=== PATIENT | male | born 1990 | race Caucasian/White ===

== ENCOUNTER 2019-07-18 22:52 | Emergency (ER) | payer SELFPAY ==
[~2019-07-18] VITALS: Ht 182.9 cm; Wt 93.0 kg
[2019-07-18 22:59] VITALS: Ht 182.9 cm; Wt 93.0 kg
[2019-07-19 01:20] LABS: BASOPHIL % 0.6 % (0-2); PLATELET COUNT 330 x10^3mcL (130-400); RED CELL DISTRIBUTION WIDTH 12.8 % (11.5-14.5)
[2019-07-19 01:23] LABS: CALCIUM 9.2 mg/dL (8.5-10.1); CARBON DIOXIDE 26.2 mmol/L (21-32); CHLORIDE SERUM 105 mmol/L (98-107); CREATININE SERUM 0.9 mg/dL (0.7-1.3); GFR1 > 60 mL/min; GLUCOSE SERUM 119 mg/dL (74-106); POTASSIUM SERUM 3.7 mmol/L (3.5-5.1); SODIUM SERUM 140 mmol/L (136-145)
[2019-07-19 01:34] LABS: ALBUMIN 3.8 g/dL (3.4-5.0); ALKALINE PHOSPHATASE 81 U/L (46-116); ALT/SGPT 102 U/L (16-63); AST/SGOT 60 U/L (15-37); BILIRUBIN TOTAL 0.95 mg/dL (0.20-1.00); C REACTIVE PROTEIN 4.1 mg/dL (<=0.9); TOTAL PROTEIN, SERUM 7.6 g/dL (6.4-8.2)
[2019-07-19 03:35] VITALS: BP 132/80
== END 2019-07-19 03:35 | disposition home or self-care (01) ==
LOC: ED 22:52
PROVIDERS: Student in an Organized Health Care Education/Training Program
DX: L03.112 Cellulitis of left axilla (principal)
CPT/HCPCS: J3490; J7030; J7060; Q9967